=== PATIENT | female | born 1955 | race Caucasian/White ===

== ENCOUNTER 2017-01-22 08:47 | Inpatient (IN) | payer BC, OTHER ==
[~2017-01-22] VITALS: Ht 152.4 cm; Wt 55.0 kg
--- NOTE | 2017-01-22 09:15 | NUR ---
PT C/O SOB X1 DAY. O2 SAT ON ROOM AIR 91%. 3L OF O2 ADMINISTERED VIA NC. COMFORT MESAURES IMPLEMENTED. CALL LIGHT W/IN REACH. WILL CONTINUE TO MONITOR.
--- NOTE | 2017-01-22 09:27 | NUR ---
DR. MOSELEY ORDERED O2 OFF FOR ABG.
--- NOTE | 2017-01-22 09:29 | NUR ---
LAB AT BEDSIDE FOR DRAW
--- NOTE | 2017-01-22 09:33 | NUR ---
EKG IN PROGRESS
[2017-01-22 09:42] LABS: BASOPHIL % 0.4 % (0-2); PLATELET COUNT 245 x10^3mcL (130-400); RED CELL DISTRIBUTION WIDTH 13.9 % (11.5-14.5)
--- NOTE | 2017-01-22 09:50 | NUR ---
Pt REFUSED ABG AT THIS TIME. DR. MOSELEY NOTIFIED BY [employer] AND RT.
[2017-01-22 09:51] LABS: CALCIUM 8.7 mg/dL (8.5-10.1); CARBON DIOXIDE 30.2 mmol/L (21-32); CHLORIDE SERUM 100 mmol/L (98-107); CREATININE SERUM 0.5 mg/dL (0.6-1.0); GFR1 > 60 mL/min; GLUCOSE SERUM 137 mg/dL (74-106); SODIUM SERUM 139 mmol/L (136-145)
[2017-01-22 09:55] LABS: ALBUMIN 3.6 g/dL (3.4-5.0); ALKALINE PHOSPHATASE 80 U/L (46-116); ALT/SGPT 23 U/L (14-59); AST/SGOT 17 U/L (15-37); BILIRUBIN TOTAL 0.26 mg/dL (0.20-1.00); CHOLESTEROL 181 mg/dL (<200); HDL CHOLESTEROL 51 mg/dL (40-60); TOTAL PROTEIN, SERUM 7.9 g/dL (6.4-8.2)
--- NOTE | 2017-01-22 10:00 | NUR ---
WAS INFORMED BY CHARGE NURSE RISHABH THAT PT REFUSED ABG TEST. I EXPLAINED TO PT THE IMPORTANCE OF EXAM AND PT REPLIED STATING "IT HURTS TO MUCH AND I DON'T WANT IT". PT WELL AWARE OF REASON AND BENEFIT REGARDING TEST. PT CONTINUES TO DENY TEST VERBALIZING UNDERSTANDING OF TEACHING.
--- NOTE | 2017-01-22 10:07 | NUR ---
MEDICATED ORDERED. PLEASE SEE EMR.
--- NOTE | 2017-01-22 11:33 | NUR ---
PT'S O2 SAT AT 93% ON 2L VIA NC. O2 INCREASED TO 4L TO INCREASE O2 SATS.
--- NOTE | 2017-01-22 11:34 | NUR ---
PT STS SHE'S STILL FEELING PHLEGM IN HER CHEST. DR. MOSELEY MADE AWARE. PT CONTINUES TO REFUSE ABG.
--- NOTE | 2017-01-22 12:01 | NUR ---
BREATHING TX IN PROGRESS.
[2017-01-22] MEDS ORDERED: LORAZEPAM0.5 MG (12:35)
[2017-01-22] MEDS ORDERED: TRAZODONE50 M1 (12:35)
[2017-01-22] MEDS ORDERED: LISINOPRIL2.5 MG (12:35)
[2017-01-22] MEDS ORDERED: VENTOLIN H0.09 MG/A1 (12:35)
--- NOTE | 2017-01-22 12:40 | NUR ---
MEDICATED ORDERED. PLEASE SEE EMR.
--- NOTE | 2017-01-22 12:53 | NUR ---
REPORT GIVEN TO DAVID DEL TORO FOR CONTINUATION OF CARE PRIMARY RN.
[2017-01-22 13:06] VITALS: BP 160/92
--- NOTE | 2017-01-22 13:10 | NUR ---
PT TRANSFERED VIA GURNEY ACCOMPANIED BY NURSE AND EMT. [employer]MENT TECHNICIAN ATTACHED VSS, NO S/S OF DISTRESS NOTED.
--- NOTE | 2017-01-22 13:20 | NUR ---
RECEIVED FROM ED VIA [facility] TO ROOM B. WITH PATIENT. ORIENTED TO ROOM. CALL LIGHT WITHIN REACH. TELE . IV INFUSING LEVAQUIN FROM ED TO [facility] WNL.
--- NOTE | 2017-01-22 13:32 | NUR ---
DR SIFUENTES MADE AWARE OF VS AND PATIENT WANTING TO EAT.
[2017-01-22 13:44] VITALS: BP 147/86
--- NOTE | 2017-01-22 13:52 | NUR ---
Received patient awake and alert in bed with at bedside, able to communicate in Burmese, c/o 5/10 pain to chset area due to cough, slightly SOB on exertion noted, IV intact to LAC, skin intact, assessment completed, patient want foods state "very hungry". Explained POC and oriented to call light and system for assistance patient verbalize understand.
--- NOTE | 2017-01-22 14:11 | NUR ---
Patient sit up in bed, all due meds given, Trazodone 50mg po given for pain. Lunch tray and ice water given. Assisting patient up to bathroom, ambulate with steady gait and independent. Inform patient to call if need tmd teacher assistant. Call light within reach.
[2017-01-22 14:13] LABS: CHOLESTEROL/HDL RATIO 3.4; T3 TOTAL 1.09 ng/mL
[2017-01-22 14:30] LABS: FREE THYROXINE INDEX 2.4 ug/dL (1.4-4.5); T4(THYROXINE) 7.6 ug/dL (4.7-13.3)
--- NOTE | 2017-01-22 14:30 | NUR ---
SITTING BEDSIDE EATING LUNCH. NO DISTRESS NOTED.
[2017-01-22 14:32] LABS: FREE T4 0.98 ng/dL (0.76-1.46)
[2017-01-22 14:49] VITALS: BP 160/92
--- NOTE | 2017-01-22 15:07 | NUR ---
CALLED RN TO ROOM, STANDING IN MIDDLE OF ROOM WITHOUT OXYGEN COUGHING. EXPLAINED NEEDED TO SIT IN BED AND USE OXYGEN. O2 AT 4L VIA NC. CALLED RT TO GIVE RX.
--- NOTE | 2017-01-22 15:14 | NUR ---
RT NO FLOOR, MADE AWARE HR 130'S. DR SIFUENTES CHANGED TO XOPENEX.
--- NOTE | 2017-01-22 15:32 | NUR ---
RT GAVE RX, CURRENTLY SITTING CALMLY BEDSIDE WITH O2 IN PLACE.
[2017-01-22 17:30] VITALS: BP 105/60
--- NOTE | 2017-01-22 17:37 | NUR ---
PATIENT SIT UP AT SIDE OF BED, DINNER TRAY GIVEN, SOLUMEDROL 80MG IVP GIVEN ORDERED. NEEDS ANTICIPATED. CALL LIGHT WITHIN REACH.
--- NOTE | 2017-01-22 18:06 | NUR ---
SITTING BEDSIDE EATING DINNER, NO DISTRESS NOTED.
--- NOTE | 2017-01-22 19:45 | NUR ---
RECEIVED Pt AAOX4 CALM AND COOPERATIVE WITH CARE. DENIES ANY CHEST PAIN. C/O THROBBING HEADACHE AT 9/10. LUNG SOUNDS ARE CLEAR/DIMINISHED. PULSE OX 93% ON 2L/NC. ACTIVE BOWEL SOUNDS X4 QUADS. DENIES ANY ABD DISCOMFORT, N/V/D. VOIDS FREELY. SKIN IS INTACT. IV SITE TO LAC IS PATENT. RADIAL AND PEDAL PULSES ARE PRESENT. NO EDEMA NOTED TO EXTREMITIES. RE-ORIENTED TO ROOM AND CALL LIGHT SYSTEM WITHIN EASY REACH. WILL CONTINUE TO MONITOR.
[2017-01-22 21:28] VITALS: BP 126/71
--- NOTE | 2017-01-23 05:11 | NUR ---
NO SIGNIFICANT CHANGES NOTED OVER NIGHT. NO FURTHER C/O OF SOB OR COUGH EPISODES. RECEIVING BREATHING TX's ORDERED AND TOLERATING WELL. REMAINS WITH 2L/NC. CONTINUES TO REST QUIETLY. SAFETY AND COMFORT MEASURES REMAIN IN PLACE. WILL CONTINUE TO MONITOR.
--- NOTE | 2017-01-23 05:38 | NUR ---
DIABETIC EDUCATION PROVIDED, Pt DOES NOT HAVE A GLUCOMETER AT HOME.
[2017-01-23 05:48] LABS: BASOPHIL % 0.3 % (0-2); PLATELET COUNT 246 x10^3mcL (130-400); RED CELL DISTRIBUTION WIDTH 13.7 % (11.5-14.5)
[2017-01-23 06:09] VITALS: BP 114/69
[2017-01-23 06:15] LABS: CALCIUM 8.7 mg/dL (8.5-10.1); CARBON DIOXIDE 28.7 mmol/L (21-32); CHLORIDE SERUM 104 mmol/L (98-107); CREATININE SERUM 0.5 mg/dL (0.6-1.0); GFR1 > 60 mL/min; GLUCOSE SERUM 155 mg/dL (74-106); MAGNESIUM 2.1 mg/dL (1.8-2.4); PHOSPHOROUS 4.6 mg/dL (2.5-4.9); POTASSIUM SERUM 4.4 mmol/L (3.5-5.1); SODIUM SERUM 141 mmol/L (136-145)
--- NOTE | 2017-01-23 06:29 | NUR ---
I HAVE REVIEWED THE DATA COLLECTION BY [place] (NAME):ALEX ANAYA ENTERED ON (DATE/TIME):01/22/2017- 7 AM - 7 PM I CONCUR WITH THE DATA AND ANY EXCEPTIONS OR COMMENTS ARE LISTED BELOW:
--- NOTE | 2017-01-23 07:30 | NUR ---
RECEIVED PATIENT AWAKE AND ALERT WALKING TO BATHROOM AND BACK SIT AT THE EDGE OF BED, PATIENT ASKING FOR BREAKFAST, INFORM PATIENT WILL BE HERE SOON, DENIES PAIN, DENIES SOB, ALL QUESTIONS ARE ANSWERED, NEEDS ANTICIPATED. CALL LIGHT WITHIN REACH.
--- NOTE | 2017-01-23 07:45 | NUR ---
ASSISTED WITH BREAKFAST SET UP, SITTING BEDSIDE.
--- NOTE | 2017-01-23 08:41 | NUR ---
WEARING O2 AT 2L VIA NC WHEN RT ENTERED ROOM, 93% O2 SAT. RT GAVE RX AND THEN PUT BACK ON O2 AT 2L.
--- NOTE | 2017-01-23 09:15 | NUR ---
PATIENT SIT AT SIDE OF BED NO ACUTE RESP DISTRESS NOTED, FAMILY MEMBERS WITH PATIENT AT THIS TIME, NO COMPLAINTS. ALL DUE MEDS GIVEN. RE-INFORCED USE OF O2 AND INCENTIVE SPIROTRY, PATIENT ABLE TO MAKE EFFORT 500ML X 5, ENCOURAGE Q1 X 10 PATIENT VERBAL UNDERSTAND. NEEDS ANTICIPATED, CALL LIGHT WITHIN REACH.
--- NOTE | 2017-01-23 10:15 | NUR ---
REFUSED TRAZADONE, TAKES AT NIGHT. SPOKE WITH DR SIFUENTES ABOUT RETIMING MEDICATION.
[2017-01-23 10:16] VITALS: BP 122/69
--- NOTE | 2017-01-23 12:10 | NUR ---
PATIENT LAYING IN BED AT THIS TIME, TECH AT BEDSIDE DOING ECHO, LEVAQUIN IVPB GIVEN, CONT TO MONITOR.
--- NOTE | 2017-01-23 12:21 | NUR ---
PATIENT COUGHING AND STATE " FEEL LIKE HAVING HIGH BLOOD PRESSURE", ASSESS PATIENT AFTER STOP COUGHING, BP 112/53, HR 89, CONT TO MONITOR.
[2017-01-23 12:23] VITALS: BP 112/53
[2017-01-23 13:59] VITALS: BP 116/58
--- NOTE | 2017-01-23 15:35 | NUR ---
Patient sit in bed coughing and at bedside state patient want expectorant med inform patient will ask MD for order. Dr. Mejía was inform and seen patient and exam; discuss to patient about med. MD instruct patient to use incentive spirometry; patient make effort to 750ml goal 1000ml for tomorrow. Call RT for breathing tx for SOB and wheezes, RT at beside given patient her breathing tx, remain at bedside, call light within reach.
--- NOTE | 2017-01-23 16:10 | NUR ---
EARLIER REQUESTED EXPECTORANT. DR SIFUENTES IN TO SEE PATIENT, DOES NOT NEED EXPECTORANT, ASKED THAT RT BE CALLED FOR RX. RT IN ROOM TO GIVE RX.
--- NOTE | 2017-01-23 16:50 | NUR ---
UP AMBULATING IN HALLWAY WITH .
--- NOTE | 2017-01-23 17:18 | NUR ---
PATIENT SIT AT SIDE OF BED NO ACUTE DISTRESS NOTED, DEMONSTRATE USE INCENTIVE SPIROMETRY UP TO 1000ML, STATE FEEL BETTER. ALL DUE MEDS GIVEN. CALL LIGHT WITHIN REACH.
[2017-01-23 18:45] VITALS: BP 108/50
--- NOTE | 2017-01-23 18:54 | NUR ---
PATIENT RESTING IN BED NO COMPLAINT, NEEDS ANTICIPATED. CALL LIGHT WITHIN REACH.
--- NOTE | 2017-01-23 20:07 | NUR ---
RECEIVED PT FROM PREVIOUS SHIFT. PT A/OX4. DENIES CHEST PAIN/PRESSURE. DENIES SOB ON RA. IV PATENT AND INFUSING WELL WITH NO S/S OF INFILTRATION. DENIES PAIN. SCDS TO BLE. CALL LIGHT WITHIN REACH, BED IN LOW POSITION. WILL CONTINUE TO MONITOR.
[2017-01-23 21:50] VITALS: BP 115/60
--- NOTE | 2017-01-24 00:01 | NUR ---
PT RESTING AT THIS TIME IN NO ACUTE DISRESS. RR EVEN AND UNLABORED. IV PATENT AND INFUSING WELL WITH NO S/S OF INFILTRATION. SCDS TO BLE. CALL LIGHT WITHIN REACH, BED IN LOW POSITION. WILL CONTINUE TO MONITOR.
--- NOTE | 2017-01-24 01:45 | NUR ---
CARE ENDORSED TO ANITHA SLAUGHTER
--- NOTE | 2017-01-24 05:23 | NUR ---
I HAVE REVIEWED THE DATA COLLECTION BY [place] (NAME):01/23/2017 ENTERED ON (DATE/TIME):FROM 0145 AM TO 7 AM I CONCUR WITH THE DATA AND ANY EXCEPTIONS OR COMMENTS ARE LISTED BELOW:
[2017-01-24 05:36] VITALS: BP 113/67
[2017-01-24 05:55] LABS: BASOPHIL % 0.1 % (0-2); PLATELET COUNT 226 x10^3mcL (130-400); RED CELL DISTRIBUTION WIDTH 13.9 % (11.5-14.5)
--- NOTE | 2017-01-24 06:18 | NUR ---
PATIENT IS RESTING COMFORTABLY WITH EYES CLOSED. AWAKENS EASILY. NO S/SX OF DISTRESS NOTED. IV IS PATENT. NO INFILTRATION NOTED. WILL ENDORSE ORDERS TO AM NURSE. CALL LIGHT WITHIN REACH. WILL CONTINUE TO MONITOR
[2017-01-24 06:34] LABS: CALCIUM 8.2 mg/dL (8.5-10.1); CARBON DIOXIDE 28.3 mmol/L (21-32); CHLORIDE SERUM 107 mmol/L (98-107); CREATININE SERUM 0.5 mg/dL (0.6-1.0); GFR1 > 60 mL/min; GLUCOSE SERUM 107 mg/dL (74-106); MAGNESIUM 2.2 mg/dL (1.8-2.4); PHOSPHOROUS 3.7 mg/dL (2.5-4.9); POTASSIUM SERUM 4.2 mmol/L (3.5-5.1); SODIUM SERUM 141 mmol/L (136-145)
--- NOTE | 2017-01-24 07:10 | NUR ---
RECEIVED REPORT FROM [facility] NURSE AT THIS TIME. PATIENT RESTING IN BED. O2 2L, VIA NC IN PLACE, NO SOB NOTED. IV TO LAC INTACT. INSTRUCTED ON USE OF CALL LIGHT. WILL CONTINUE TO MONITOR.
[2017-01-24 09:40] VITALS: BP 130/70
--- NOTE | 2017-01-24 10:23 | NUR ---
NOIFIED DR. SIFUENTES WBC 13.3 AT THIS TIME.
[2017-01-24] MEDS ORDERED: LEVOFLOXACIN500 M1 PO (12:33)
[2017-01-24] MEDS ORDERED: PREDNISONE20 MG PO (12:34)
[2017-01-24] MEDS ORDERED: MONTELUKAST SOD10 M1 PO (12:40)
[2017-01-24] MEDS ORDERED: LISINOPRIL10 MG PO (12:56)
[2017-01-24 13:08] VITALS: BP 130/70
--- NOTE | 2017-01-24 13:45 | NUR ---
DISCHARGE INSTRUCTIONS GIVEN TO PATIENT AND SPOUSE. PATIENT VERBALIZES UNDERSTANDING. IV REMOVED, CATH INTACT. ID BANDS REMOVED. ALL BELONGINGS WITH PATIENT.
[2017-01-24 15:01] LABS: UA SPECIFIC GRAVITY <=1.005 (1.005-1.035); microscopic required? YES; urine erythrocyte TRACE (NEGATIVE)
[2017-01-24 15:16] LABS: AMPHETAMINE QUAL UR NONE DETECTED (NEG <=1000)
== END 2017-01-24 14:07 | disposition home or self-care (01) | DRG 152 ==
LOC: ED 08:47 → DU 12:27 → MU 12:27 → DU 13:06 → MU 01-23 16:55
PROVIDERS: Emergency Medicine; Family Medicine; ADMIT Family Medicine
DX: J06.9 Acute upper respiratory infection, unspecified (principal); N17.0 Acute kidney failure with tubular necrosis; J45.901 Unspecified asthma with (acute) exacerbation; R09.02 Hypoxemia; I16.0 Hypertensive urgency; G47.09 Other insomnia; F41.8 Other specified anxiety disorders; M19.90 Unspecified osteoarthritis, unspecified site; Z68.23 Body mass index [BMI] 23.0-23.9, adult
CPT/HCPCS: 80307; 83880; 84439; 90732; 94150; J1956; J2920; J2930; J3490; J7030; J7613; J7620; J7633; J7644

== ENCOUNTER 2018-01-13 15:11 | Emergency (ER) | payer BC, OTHER ==
[~2018-01-13] VITALS: Ht 154.9 cm; Wt 57.1 kg
[~2018-01-13 15:11] MED LIST: LEVOFLOXACIN500 M1 PO; LISINOPRIL10 MG PO; LISINOPRIL2.5 MG; LORAZEPAM0.5 MG; MONTELUKAST SOD10 M1 PO; PREDNISONE20 MG PO; TRAZODONE50 M1; VENTOLIN H0.09 MG/A1
[2018-01-13 15:32] VITALS: Ht 154.9 cm; Wt 57.1 kg
[2018-01-13 19:08] VITALS: BP 147/89
== END 2018-01-13 19:08 | disposition home or self-care (01) ==
LOC: ED 15:11
DX: J45.909 Unspecified asthma, uncomplicated (principal); I10 Essential (primary) hypertension; Z88.0 Allergy status to penicillin; Z90.710 Acquired absence of both cervix and uterus